=== PATIENT | male | born 1960 | race Caucasian/White ===

== ENCOUNTER → 2020-06-16 | Outpatient (CLI) | payer BC | LOC: MRI 12:28 | DX: S83.241D Other tear of medial meniscus, current injury, right knee, subsequent encounter (principal); M25.461 Effusion, right knee; X58.XXXD Exposure to other specified factors, subsequent encounter | CPT/HCPCS: 73721 ==

== ENCOUNTER → 2020-12-07 | Outpatient (CLI) | payer BC | LOC: EXRD 11:25 | DX: E04.1 Nontoxic single thyroid nodule (principal) | CPT/HCPCS: 76536 ==

== ENCOUNTER → 2021-01-09 | Outpatient (CLI) | payer BC | LOC: HEART 5 09:22 | DX: R05 Cough (principal) | CPT/HCPCS: 94010 ==

== ENCOUNTER → 2021-02-05 | Outpatient (CLI) | payer BC | LOC: EXRD 02-02 14:00 | DX: D75.1 Secondary polycythemia (principal) | CPT/HCPCS: 76775 ==

== ENCOUNTER → 2021-08-06 | Outpatient (CLI) | payer BC | LOC: HEART 5 10:46 | DX: R05.9 Cough, unspecified (principal); R55 Syncope and collapse | CPT/HCPCS: 94010; 94729; 95012 ==

== ENCOUNTER → 2021-08-15 | Outpatient (CLI) | payer BC | LOC: EXRD 10:20 | DX: R05.9 Cough, unspecified (principal) | CPT/HCPCS: 70220; 71046 ==

== ENCOUNTER → 2021-11-21 | Outpatient (CLI) | payer BC | LOC: KOH-I 10:15 | DX: R74.8 Abnormal levels of other serum enzymes (principal); K76.0 Fatty (change of) liver, not elsewhere classified | CPT/HCPCS: 76705 ==